=== PATIENT | male | born 2000 | race Two or more races ===

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

== ENCOUNTER 2021-02-03 12:34 | Emergency (ER) | payer OTHER, MEDICAID ==
[~2021-02-03] VITALS: Ht 180.3 cm; Wt 58.5 kg
[2021-02-03] MEDS ORDERED: ONDANSETRON ODT 4 MG TAB PO ONE (14:00)
[2021-02-03] MEDS ORDERED: DICYCLOMINE HCL 10 MG CAP PO ONE (14:00)
[2021-02-03 14:35] VITALS: BP 129/73
== END 2021-02-03 14:43 | disposition home or self-care (01) ==
LOC: ER 12:34
DX: R11.2 Nausea with vomiting, unspecified (principal); R19.7 Diarrhea, unspecified
CPT/HCPCS: 99283; J0500; Q0162